=== PATIENT | female | born 1955 | race Caucasian/White ===

== ENCOUNTER → 2018-07-16 | Outpatient (REF) | payer MEDICARE, OTHER ==
[2018-07-16 18:53] LABS: BLOOD UREA NITROGEN 14 MG/DL (7-18); GLOMERULAR FILTRATION RATE > 60.0 (>45)
== END ==
LOC: M LAB REF 17:16
PROVIDERS: ATTEND Nurse Practitioner Adult Health
DX: R91.8 Other nonspecific abnormal finding of lung field (principal)

== ENCOUNTER → 2018-07-23 | Outpatient (CLI) | payer MEDICARE, BC, OTHER ==
[~2018-07-23] MED LIST: ISOVUE-370 76% 125ML VIAL (Q9967 PER ML) As Ordered ONE
--- NOTE | 2018-07-24 15:21 | REP ---
CT CHEST WITH IV CONTRAST: TECHNIQUE: Axial contrast enhanced images from the thoracic inlet to the upper abdomen using 100 mL Isovue 370 intravenous contrast material with multiplanar reformations. COMPARISON: Chest radiograph 07/15/2018 from [facility] and 09/13/2011 from [facility]. We have obtained the recent chest radiographs dated 07/15/2018 and comparing them to 09/13/2011 study right suprahilar opacity appears quite similar to that prior exam. By CT, there is confluent parenchymal opacity in the superior segment of the right lower lobe in this region. There is associated bronchiectasis. Scattered diffuse interstitial fibrosis is seen throughout the remainder of the right lung. Similar fibrotic changes are seen in the left lung. In the central posterior left upper lobe there is mild confluent fibrotic change and mild bronchiectasis with thickening of the major fissure superiorly and focal pleural thickening in the left apex posterolaterally. Heart is normal in size. I do not see significant mediastinal, hilar or chest wall lymphadenopathy. There is no pleural or pericardial effusion. There is no evidence of thoracic aortic aneurysm or dissection. Small calcified lymph node is seen in the subcarinal region. In the visualized portion of the upper abdomen, several small cysts are seen in the liver. IMPRESSION: In the right suprahilar region in the region in the abnormality seen on recent chest radiograph from [facility] there is a confluent parenchymal opacity in the superior segment of the right lower lobe with associated bronchiectasis and air bronchograms. Comparing back to a prior chest radiograph from [facility] 09/13/2011, the opacities appear essentially stable. This probably represents confluent fibrosis. There are diffuse areas of interstitial fibrosis bilaterally with areas of mild pleural thickening as well. There is mild bronchiectasis in the posterior left upper lobe. Since I have no prior CT of the chest for comparison, I would recommend a followup CT be performed in 3 months. Electronically Signed by Roger Walker MD 07/24/2018 04:10 P
== END ==
LOC: M RAD 10:06
PROVIDERS: ATTEND Nurse Practitioner Adult Health
DX: R91.8 Other nonspecific abnormal finding of lung field (principal); J84.10 Pulmonary fibrosis, unspecified; J47.9 Bronchiectasis, uncomplicated
CPT/HCPCS: 71260; Q9967

== ENCOUNTER → 2019-01-30 | Outpatient (CLI) | payer MEDICARE, BC, OTHER ==
[~2019-01-30] MED LIST changes: +ISOVUE-370 76% 100ML VIAL (Q9967) As Ordered ONE; -ISOVUE-370 76% 125ML VIAL (Q9967 PER ML) As Ordered ONE
--- NOTE | 2019-01-30 15:39 | REP ---
CT chest with IV contrast: History: Sarcoidosis. Comparison study: July 23, 2018. CT contrast dose: 75 mL of intravenous Isovue [address] findings: Digital preliminary hand brush filler radiograph demonstrates a metallic fusion plate in the lower cervical spine. There is no evidence of pleural effusion or pericardial effusion. No hilar or mediastinal mass or adenopathy is observed. There are several well-defined low density lesions in the liver consistent with cysts. The largest of these measures 2.1 cm in greatest diameter. These are unchanged from the comparison CT study. No adrenal lesion is observed. There is a 2 mm calcification in the left mid kidney which is probably a tiny intrarenal calculus. No hydronephrosis is visible. Visualized upper abdominal structures are otherwise unremarkable. There is a disc shaped linear/nodular opacity in the posterior segment of the right upper lobe with adjacent dilated bronchi and some volume loss consistent with chronic fibro-atelectasis. This is unchanged from the comparison study July 23, 2018. There is a similar but smaller area of fibroatelectatic change more superiorly in the right upper lobe which is also stable in appearance. There is bronchiectasis in the left upper lobe again noted with slight volume loss and pleural thickening adjacent to this. This is unchanged. There is an area of chronic interstitial infiltrate in the right lower lobe which is unchanged. No new pulmonary nodule, mass, or new infiltrate is seen. Impression: Stable bilateral multifocal parenchymal opacities as above. There is bilateral upper lobe bronchiectasis. No mass or adenopathy seen. Electronically Signed by Luis A Lin MD 01/30/2019 04:08 P
== END ==
LOC: M RAD 12:59
PROVIDERS: ATTEND Internal Medicine Pulmonary Disease
DX: D86.2 Sarcoidosis of lung with sarcoidosis of lymph nodes (principal)
CPT/HCPCS: 71260; Q9967

== ENCOUNTER → 2020-02-17 | Outpatient (CLI) | payer MEDICARE, BC, OTHER ==
--- NOTE | 2020-02-22 11:41 | REP ---
NONCONTRAST CHEST CT CLINICAL: History of sarcoidosis. TECHNIQUE: Axial noncontrast images from the thoracic inlet to the upper abdomen with coronal and sagittal reformations. COMPARISON: 01/30/2019, 07/23/2018. FINDINGS: Chronic parenchymal opacities including small nodules/areas of consolidation and fibroatelectatic change involving the bilateral upper lung zones (right greater than left) remain stable. No new acute pulmonary parenchymal process appreciated. No effusion. No physical therapy. Tracheobronchial tree is patent with very mild bronchiectasis suggested. No axillary, hilar, or mediastinal adenopathy noted. Minimal atherosclerotic changes to the thoracic aorta and coronary arteries again noted and stable. No aneurysm or cardiomegaly. No pericardial effusion. Surrounding musculoskeletal structures are intact. IMPRESSION: * Stable chronic pulmonary parenchymal changes primarily noted in the bilateral upper lung zones (right greater than left). * No new acute mediastinal or pleural parenchymal process. No evidence for adenopathy. MTDD
== END ==
LOC: M RAD 11:49
PROVIDERS: ATTEND Internal Medicine Pulmonary Disease
DX: D86.2 Sarcoidosis of lung with sarcoidosis of lymph nodes (principal)

== ENCOUNTER → 2021-02-16 | Outpatient (CLI) | payer MEDICARE, BC, OTHER ==
--- NOTE | 2021-02-16 13:37 | REP ---
INDICATION: SARCOIDOSIS OF LUNG COMPARISON: Multiple the latest 02/17/2020 also without contrast TECHNIQUE: Standard helical technique without contrast FINDINGS: The mediastinum and pulmonary corrina are stable. There is a 1.3 cm sized right hilar node which has developed since the last exam. There are no pleural or pericardial effusions. There is no significant change in the appearance of the imaged upper abdomen or imaged osseous structures. Evaluation of the lung chavarria shows stable appearing tiny scattered nodules there is a stable nodule in the apicoposterior segment of the left upper lobe which measures approximately 1 cm. The large irregular density seen in the superior segment of the right lower lobe is stable. I see no definite new abnormal nodules, masses, or opacities. There is varicoid bronchiectasis status quo.. IMPRESSION: Stable appearing chronic lung field changes as described above consistent with the patient's diagnosis of sarcoidosis. <Electronically signed by Remi Paulson > 02/16/21 [id number]
== END ==
LOC: M RAD 12:47
PROVIDERS: ATTEND Internal Medicine Pulmonary Disease
DX: D86.0 Sarcoidosis of lung (principal); J47.9 Bronchiectasis, uncomplicated; R91.8 Other nonspecific abnormal finding of lung field

== ENCOUNTER → 2022-02-21 | Outpatient (CLI) | payer MEDICARE, BC, OTHER | LOC: M PLAIMG 11:31 | PROVIDERS: ATTEND Internal Medicine Pulmonary Disease | DX: R91.8 Other nonspecific abnormal finding of lung field (principal); I25.10 Atherosclerotic heart disease of native coronary artery without angina pectoris; J45.40 Moderate persistent asthma, uncomplicated ==

== ENCOUNTER → 2023-02-20 | Outpatient (CLI) | payer MEDICARE, BC, OTHER | LOC: M PLAIMG 10:12 | PROVIDERS: ATTEND Internal Medicine Pulmonary Disease | DX: J45.40 Moderate persistent asthma, uncomplicated (principal) ==

== ENCOUNTER → 2024-03-18 | Outpatient (CLI) | payer MEDICARE, BC | LOC: M RAD 09:08 | PROVIDERS: ATTEND Internal Medicine Pulmonary Disease | DX: J45.40 Moderate persistent asthma, uncomplicated (principal); R91.8 Other nonspecific abnormal finding of lung field; K76.89 Other specified diseases of liver; N20.0 Calculus of kidney ==

== ENCOUNTER → 2025-04-21 | Outpatient (CLI) | payer MEDICARE, BC | LOC: M PLAIMG 10:11 | PROVIDERS: ATTEND Internal Medicine Pulmonary Disease | DX: D86.0 Sarcoidosis of lung (principal) ==